=== PATIENT | female | born 1970 | race Caucasian/White ===

== ENCOUNTER → 2016-08-24 | Outpatient (CLI) | payer BC | LOC: RAD 09:08 | PROVIDERS: ATTEND Physician Assistant Medical | DX: N93.9 Abnormal uterine and vaginal bleeding, unspecified (principal); Z97.5 Presence of (intrauterine) contraceptive device | CPT/HCPCS: 76856 ==

== ENCOUNTER 2016-08-26 12:30 | Emergency (ER) | payer BC ==
[~2016-08-26] VITALS: Ht 157.5 cm; Wt 73.0 kg
[2016-08-26] MEDS ORDERED: SODIUM CHLORIDE FLUSH 3 ML SYR IV PRN (13:50)
[2016-08-26] MEDS ORDERED: SODIUM CHLORIDE FLUSH 10 ML SYR IV PRN (13:50)
[2016-08-26 14:22] LABS: BASOPHILS % (AUTO) 0 % (0-2); EOSINOPHILS % (AUTO) 0 % (0-4); LYMPHOCYTES # (AUTO) 2.6 X10^3; MEAN CORPUSCULAR HEMOGLOBIN 29.4 PG (26.0-34.0); MEAN CORPUSCULAR HGB CONC 33.4 g/dL (31.0-37.0); MEAN CORPUSCULAR VOLUME 88 FL (80-100); MEAN PLATELET VOLUME 11.3 FL (6.0-9.5); MONOCYTES # (AUTO) 0.8 X10^3; MONOCYTES % (AUTO) 5 % (3-11); NEUTROPHILS # (AUTO) 12.2 X10^3; NEUTROPHILS % (AUTO) 78 % (51-67); PLATELET COUNT 243 10^3uL (150-450); WHITE BLOOD COUNT 15.64 10^3uL (4.0-11.0)
--- NOTE | 2016-08-26 16:10 | NUR ---
PT IS TAKING 2 - MENSTRUAL COMPLETE TABLETS OF HER OWN FOR CRAMPS, DR WHITLEY. THE TABLETS ARE ACETAMINOPHEN 500MG, CAFFEINE 60MG AND PYRILAMINE 15MG.
[2016-08-26 16:59] VITALS: BP 139/64
== END 2016-08-26 16:45 | disposition home or self-care (01) ==
LOC: ED 12:31
DX: N93.8 Other specified abnormal uterine and vaginal bleeding (principal); Z97.5 Presence of (intrauterine) contraceptive device
CPT/HCPCS: 36415; 84703; 85025; 99283; J7030; 96360; 99282

== ENCOUNTER 2016-09-06 06:28 | Day surgery (SDC) | payer BC ==
[2016-09-06] VITALS (9 sets, daily range): BP systolic 100–136; BP diastolic 63–86
[~2016-09-06] VITALS: Ht 157.5 cm; Wt 71.8 kg
[~2016-09-06 06:28] MED LIST: ESTR1.25 PO; LACTATED RINGERS 1,000 ML IV SCH; SODIUM CHLORIDE FLUSH 3 ML SYR IV SCH; ceFAZolin 2,000 MG in SODIUM CHLORIDE VIAL (PF) 20 ML IV SCH
--- OUTSIDE RECORDS SUMMARY | 2016-09-06 06:32 | XMS REPORT | Continuity of Care Document ---
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 [id number] Chanda Finch Self / Same As Patient Advance Directives Directive Response Recorded Date/Time Advanced Directives No 08/26/16 12:38pm Chief Complaint and Reason for Visit Chief Complaint Gynecological Complaint Reason for Visit Dysfunctional uterine bleeding Problems Active Problems Medical Problem Onset Date Status Bronchitis Unknown Acute Dysfunctional uterine bleeding ~08/26/2016 Acute Medications No medication information available. Social History Query Response Start Date Stop Date Smoking Status Never smoker Hospital Discharge Instructions No hospital discharge instructions. Plan of Care Discharge Date 08/26/16 4:45pm Disposition 01 HOME OR SELF-CARE Condition at Discharge Stable Instructions/Education Provided Uterine Fibroids Prescriptions See Medication Section Referrals YOHANA MACEDO MD - Additional Instructions/Education Take the Sprintec 3 tabs 3 times daily. Ibuprofen and tylenol for pain. Keep your appointment Sunday as scheduled. Some of your test results may not be complete prior to your leaving the Emergency Department. The Emergency Department is not authorized to give test results over the phone. Please contact the doctor's office listed in this packet of information for your final results. Follow up with your primary care physician or return to the Emergency Department for worsening or worrisome symptoms. * Emergency Department phone number: [phone], x [phone]* MEDICAL RECORD If you need copies of your X-rays, call [phone]. If you need copies of your medical record, including lab results, a signed authorization for release of records will be required. A telephone call for release of Health Information is not allowed. BILLING Billing can sometimes be confusing and frustrating. To help avoid confusion in the future, please take a moment to acquaint yourself with the billing parties for services. SERVICE BILLING [employer]OCRAT Emergency Room Services [facility] Physician Services [facility] X-rays [facility] Patients will receive bills for services from the appropriate provider. If you have any questions about your [facility] bill, our staff will be happy to assist you. Please call [phone], and ask for the billing department. THANK YOU for choosing [facility] as your emergency care provider! Care Plan and Goals ~~Discharge Care Plan~~ Problem: gynecological problem Goal: Decreased pain. No vaginal bleeding/discharge. Instructions: Take medication(s) as prescribed. Follow home care instructions as directed. Follow up with your CHOIR MEMBER or primary care physician as directed. Return if bleeding increases to more than one super pad per hour. Functional Status No functional status results. Allergies, Adverse Reactions, Alerts Allergen Type Severity Reaction Status Last Updated Sulfa (Sulfonamide Antibiotics) Allergy Unknown Active 08/26/16 Immunizations No immunization records. Vital Signs Acute Vital Signs Vital Response Date/Time Temperature (Fahrenheit) 98.8 08/26/2016 4:59pm Pulse 113 bpm 08/26/2016 4:59pm Respirations 16 08/26/2016 4:59pm Height 5 ft 2 in Weight 160 lb Body Mass Index 29.0 kg/m^2 Results Pending Laboratory Results Test Name Collection Date/Time Procedures Procedure Status Date Provider(s) US EXAM PELVIC COMPLETE Completed 08/24/16 Encounters Encounter Location Arrival/Admit Date Discharge/Depart Date Attending Provider Departed Emergency Room [facility] 08/26/16 12:31pm 08/26/16 4:45pm JESÚS SALAZAR MD Registered Clinic [facility] 08/24/16 9:08am MAXIMUS SEHA Recent Diagnosis
[2016-09-06] MEDS ORDERED: METHYLENE BLUE 1% 10 MG/ML 10 ML VIAL ONE (06:38)
[2016-09-06] MEDS ORDERED: LIDOCAINE/EPINEPHRINE 1% 1:100,000 (XYLOCAINE) 30 ML VIAL INJ ONE (06:38)
[2016-09-06] MEDS ORDERED: SODIUM CHLORIDE FLUSH 20 ML ONE (06:50)
[2016-09-06] MEDS ORDERED: SODIUM CHLORIDE FLUSH 10 ML ONE (06:56)
[2016-09-06 07:07] LABS: MEAN CORPUSCULAR HEMOGLOBIN 30.2 PG (26.0-34.0); MEAN CORPUSCULAR HGB CONC 32.7 g/dL (31.0-37.0); MEAN CORPUSCULAR VOLUME 92 FL (80-100); MEAN PLATELET VOLUME 11.3 FL (6.0-9.5); PLATELET COUNT 267 10^3uL (150-450)
[2016-09-06] MEDS ORDERED: MIDAZOLAM 2 MG/2 ML (VERSED) VIAL ONE (07:07)
[2016-09-06] MEDS ORDERED: ALFENTANIL 500 MCG/ML (ALFENTA) 5 ML AMP IV ONE (07:07)
[2016-09-06] MEDS ORDERED: PROPOFOL 20 ML IV ONE (07:08)
[2016-09-06 07:15] LABS: BAND NEUTROPHILS % 0 % (0-6); EOSINOPHILS % 0 % (0-4); LYMPHOCYTES # 3.5 #; MONOCYTES # 0.8 #; MONOCYTES % 7 % (3-11); POLYCHROMASIA SLIGHT; RBC MORPH SEE REFERENCE (NORMAL); SEGMENTED NEUTROPHILS % 63 % (51-67); TOTAL CELLS COUNTED 100
[2016-09-06 07:46] LABS: ANION GAP 15.7 MEQ/L (3-15)
[2016-09-06] MEDS ORDERED: SUCCINYLCHOLINE 20 MG/ML 10 ML VIAL ONE (08:21)
[2016-09-06] MEDS ORDERED: diphenhydrAMINE 50 MG/ML INJ (BENADRYL) ONE (08:22)
[2016-09-06] MEDS ORDERED: ONDANSETRON 2 MG/ML (Z0FRAN) 2 ML VIAL ONE (08:22)
[2016-09-06] MEDS ORDERED: ROCURONIUM 50 MG/5 ML (ZEMURON) VIAL IV ONE (09:02)
[2016-09-06] MEDS ORDERED: GLYCOPYRROLATE 0.2 MG/ML (ROBINUL) 1 ML VIAL ONE (09:08)
[2016-09-06] MEDS ORDERED: NEOSTIGMINE 1 MG/ML SYRINGE ONE (09:08)
[2016-09-06] MEDS ORDERED: KETOROLAC 60 MG/2 ML (TORADOL) VIAL IM ONE (09:10)
--- NOTE | 2016-09-06 09:29 | Operative Report (E) ---
Operative Report (E) 09/06/16 09:27 Pre-Operative Diagnosis: Menorrhagia, fibroid uterus Post-Operative Diagnosis: Same Procedure: Total vaginal hysterectomy Surgeon: Aravind Insurance Verification Rep: Ronit JI Anesthesia: GETA EBL: 100cc Findings: enlarged fibroid uterus. Moderate decensus. Normal anterior and posterior support. Normal ovaries and tubes. JENNIFER ESQUIVEL MD Sep 06, 2016 09:29
[2016-09-06] MEDS ORDERED: HYDROcodone/APAP 5 MG/325 MG (NORCO) TAB PO PRN (09:30)
[2016-09-06] MEDS ORDERED: ONDANSETRON 2 MG/ML (Z0FRAN) 2 ML VIAL IV PRN (09:30)
[2016-09-06] MEDS ORDERED: PROMETHAZINE HCL INJ 12.5 MG in SODIUM CHLORIDE 25 ML IV PRN (09:30)
[2016-09-06] MEDS ORDERED: HYDROmorphone PCA 30 MG/30 ML (DILAUDID) VIAL IV PRN (09:30)
[2016-09-06] MEDS ORDERED: NS FLUSH 3 ML PRN IV (09:55)
[2016-09-06] MEDS: LACTATED RINGERS 1,000 ML IV SCH ×2 (11:10→21:02)
--- NOTE | 2016-09-06 11:11 | OPERATIVE REPORT ---
DATE OF OPERATION: 09/06/2016 PRE-OPERATIVE DIAGNOSIS: 1. Menorrhagia. 2. Fibroid uterus. POST-OPERATIVE DIAGNOSIS: 1. Menorrhagia. 2. Fibroid uterus. OPERATIVE PROCEDURE: Total vaginal hysterectomy SURGEON: Jian Nazario MD RIVET STICKER: Allison James RN, CSFA ANESTHESIA: General endotracheal COMPLICATION: None ESTIMATED BLOOD LOSS: 100 mL SPECIMEN: Uterus, cervix and fibroid FINDINGS: Intraoperatively the patient was noted to have good anterior and posterior support with moderate uterus descensus. She had a top normal sized uterus with multiple fibroids, the largest of which was in the posterior right cul-de-sac. Bilateral tubes and ovaries were visualized and normal. DESCRIPTION OF PROCEDURE: After confirming the validity of the informed consent the patient was transported to the operating suite where she was placed in the dorsal lithotomy position after general anesthesia was administered without event. The patient was sterilely prepped and draped in the usual fashion and her bladder was emptied with a straight catheter. Methylene blue 30 mL was instilled normal saline was instilled into the bladder. The catheter was removed. The cervix was grasped with Sourav clamps and the vaginal epithelium was infiltrated circumferentially with 10 mL of 1% lidocaine with 1:100,000 parts of epinephrine with equal parts of normal saline. The posterior peritoneal reflexion was palpated and entered sharply with Granda scissors. The bilateral uterosacral ligaments were clamped with Charleen clamps, cut, and ligated with #0 Vicryl suture. The remainder of the cervicovaginal junction was incised with a scalpel. A small amount of sharp dissection revealed the anterior peritoneal reflexion, which was entered sharply with Metzenbaum scissors. The bilateral cardinal ligaments were clamped with Charleen clamps, cut and ligated with #0 Vicryl suture. The broad ligament was taken into further Charleen clamps, cut, and ligated with #0 Vicryl suture. At this point, the large posterior right fibroid was grasped with a single tooth tenaculum and pulled into the surgical field and excised. This allowed delivery of the fundus. A very small amount of fallopian tube was torn on the left while getting a cornu bite with the Charleen clamp. The cornu was clamped on the right and cut and the uterus and cervix were passed off the surgical field. With a small amount of retraction the entire cornual portion on the left was grasped with an Allis clamp, and back clamped with a Charleen clamp without difficulty. This was then suture ligated with #0 Vicryl suture and held to monitor hemostasis. The right cornu was then tired with an #0 Vicryl free tie and suture ligated with an #0 Vicryl suture. The entire right pedicle was inspected and found to be thoroughly hemostatic and the stay suture was cut. On the left, the entire pedicle was noted to be hemostatic and the stay suture was cut as well. A Lopez suture was then placed through the vaginal wall incorporating the posterior peritoneum and bilateral uterosacral ligaments to be tied at the completion of the closure. The bilateral uterosacral ligaments were then fixed to the vaginal cuff with #0 Vicryl sutures. The vaginal cuff was then closed with a running locking #0 Vicryl suture from left to right. The Lopez suture was tied. The vagina was irrigated and found to be hemostatic and all sutures were cut. All needles, sponge, and instrument counts were correct x2. A Gama catheter was placed in the bladder. The patient tolerated the procedure well and was transferred to PACU in good condition.
[2016-09-06] MEDS ORDERED: KETOROLAC 30 MG/ML (TORADOL) 1 ML VIAL ONE (11:19)
[2016-09-06] MEDS: KETOROLAC 30 MG/ML (TORADOL) 1 ML VIAL IV SCH ×2 (11:21→22:22)
--- NOTE | 2016-09-06 13:23 | NUR ---
Dangled pt at side of bed. Pt did experience small amount of dizziness. Assisted Pt back into semi-fowlers position. Dizziness relieved.
--- NOTE | 2016-09-06 16:01 | Progress Note (E) ---
Progress Note Doing great post-op, pain controlled, legs dangled x1 with mild dizziness. UOP normal, tolerating PO clears. Will advance diet, ambulate, remove henderson, CBC in am. Anticipate discharge tomorrow. JENNIFER ESQUIVEL MD Sep 06, 2016 16:01
[2016-09-07 00:35] VITALS: BP 102/53
--- NOTE | 2016-09-07 03:00 | NUR ---
Up to bathroom. States getting easier and feeling better each time she is up. Discussed plan of care for remainder of shift. Lab scheduled for 0500. 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 Will begin oral pain meds to see if adequate for pain control in anticipation of discharge home this morning. Pt said Dr. Nazario's plan was to evaluate for discharge by noon.
[2016-09-07] MEDS: NS FLUSH 10 ML PRN IV ×2 (05:40→07:27)
[2016-09-07 05:56] LABS: BASOPHILS % (AUTO) 0 % (0-2); EOSINOPHILS # (AUTO) 0.1 10^3uL; EOSINOPHILS % (AUTO) 1 % (0-4); LYMPHOCYTES # (AUTO) 2.8 X10^3; MEAN CORPUSCULAR HEMOGLOBIN 30.1 PG (26.0-34.0); MEAN CORPUSCULAR HGB CONC 32.7 g/dL (31.0-37.0); MEAN CORPUSCULAR VOLUME 92 FL (80-100); MEAN PLATELET VOLUME 11.5 FL (6.0-9.5); MONOCYTES # (AUTO) 0.7 X10^3; MONOCYTES % (AUTO) 7 % (3-11); NEUTROPHILS # (AUTO) 7.6 X10^3; NEUTROPHILS % (AUTO) 67 % (51-67); PLATELET COUNT 191 10^3uL (150-450); WHITE BLOOD COUNT 11.27 10^3uL (4.0-11.0)
[2016-09-07] MEDS: KETOROLAC 30 MG/ML (TORADOL) 1 ML VIAL IV SCH (07:26)
[2016-09-07 08:00] VITALS: BP 99/63
--- NOTE | 2016-09-07 08:48 | Discharge Instructions (E) ---
Discharge Instructions Instructions Nothing PV 6 weeks. No lifting >15 lbs 2 weeks. May return to work after seen by Dr. Nazario. Call with severe bleeding, fever, or pain. Doctor's Appointment [address] Nazario Discharge Diet: JENNIFER Reid MD Sep 07, 2016 08:48
[2016-09-07] MEDS ORDERED: FERR-74 PO (08:49)
--- NOTE | 2016-09-07 08:51 | Progress Note-A/P (E) ---
Progress Note Subjective Subjective Feeling well, pain controlled, tolerating PO, voiding, showered, ambulating. Bleeding scant. Objective VS Vital Signs Date Time Temp Pulse Resp B/P Pulse Ox O2 Delivery O2 Flow Rate FiO2 09/07/16 00:35 99.2 84 16 102/53 99 Room air Current Medications Current Medications Lactated Ringer's 1,000 ml @ 100 mls/hr Q10H IV Last administered on 09/06/16 21:02; Admin Dose 100 MLS/HR; Start 09/06/16 at 09:29 Promethazine HCl/ Sodium Chloride 25.5 ml @ 75 mls/hr Q4H PRN IV; Start at 09:30 Ondansetron HCl 4 mg Q6H PRN IV Last administered on 09/06/16 11:21; Admin Dose 4 MG; Start 09/06/16 at 09:30 Acetaminophen/ Hydrocodone Bitart 1-2 tablets Q4H PRN PO Last administered on 05:39; Admin Dose 2 TAB; Start 09/06/16 at 09:30 Hydromorphone/ Sodium Chloride 1 vial PRN PRN IV Last administered on 09/06/16 11:10; Admin Dose 1 VIAL; Start 09/06/16 at 09:30 Ketorolac Tromethamine 30 mg Q8HR IV Last administered on 09/07/16 07:26; Admin Dose 30 MG; Start 09/06/16 at 14:00; Stop 09/11/16 at 13:59 Sodium Chloride 3 ml DAILY IV; Start 09/07/16 at 09:00 Sodium Chloride 3 ml UD PRN IV; Start 09/06/16 at 09:55 Sodium Chloride 10 ml UD PRN IV Last administered on 09/07/16 07:27; Admin Dose 10 ML; Start 09/06/16 at 09:55 General Awake, alert, oriented to person, place, and situation. NAD at present HEENT EOMI, PERRL CV RRR, S1 S2 audible Lungs Clear No rales, rhonchi or wheezes Abdomen Soft non distended, no tenderness to palpation, no masses Extremities No edema Integumentary No unusual findings Neuro No focal motor neuro deficits Labs, Most Recent- Laboratory Results Past 24 Hrs 09/07/16 05:25: Basophils # (Auto) 0.0, Basophils (%) (Auto) 0, Eosinophils # (Auto) 0.1, Eosinophils (%) (Auto) 1, Hematocrit 26.30, Hemoglobin 8.6, Lymphocytes # (Auto ) 2.8, Lymphocytes (%) (Auto) 25, Mean Corpuscular Hemoglobin 30.1, Mean Corpuscular Hemoglobin Concent 32.7, Mean Corpuscular Volume 92, Mean Platelet Volume 11.5, Monocytes # (Auto) 0.7, Monocytes (%) (Auto) 7, Neutrophils # (Auto ) 7.6, Neutrophils (%) (Auto) 67, Platelet Count 191, Red Blood Count 2.86, Red Cell Distribution Width 14.6, Smear Scan Yes, White Blood Count 11.27 24 Hr Result Diagram CBC BMP Last 24 Hrs 09/07/16 05:25 Assessment S/P TVH POD#1. Hgb stable at 8.6, doing well. Will discharge home, precautions reviewed. Documented Problems: (1) Fibroid uterus (2) Menorrhagia JENNIFER ESQUIVEL MD Sep 07, 2016 08:51
[2016-09-07] MEDS ORDERED: HYDR-3702 PO (08:52)
[2016-09-07] MEDS ORDERED: NS FLUSH 3 ML DAILY IV SCH (09:00)
--- NOTE | 2016-09-07 10:16 | NUR ---
Pt DC to home. Pt left unit at 1010 in wheelchair pushed by staff to private vehicle with spouse to drive home.
== END 2016-09-07 10:10 | disposition home or self-care (01) ==
LOC: ASC 06:28 → OB 10:45 → ASC 09-07 10:10
PROVIDERS: ATTEND Obstetrics & Gynecology
DX: N92.0 Excessive and frequent menstruation with regular cycle (principal); D25.9 Leiomyoma of uterus, unspecified
CPT/HCPCS: 36415; 58260; 80048; 81025; 85007; 85025; 85027; 86850; 86900; 86901; 93005; J0330; J1170; J1200; J1885; J2250; J2405; J2710; J3490; J7120; Q9968